=== PATIENT | male | born 1975 | race African-American/Black ===

== ENCOUNTER 2019-09-01 17:58 | Emergency (ER) | payer OTHER ==
[~2019-09-01] VITALS: Ht 177.8 cm; Wt 100.0 kg
[~2019-09-01 17:58] MED LIST: GLIP10TA3; IBUPROFEN; METFORMIN
[2019-09-01] MEDS ORDERED: KETOROLAC 60MG/2ML VIAL IM STA (20:48)
[2019-09-01 21:59] VITALS: BP 130/78
== END 2019-09-01 22:00 | disposition home or self-care (01) ==
LOC: ER 17:58
DX: S46.911A Strain of unspecified muscle, fascia and tendon at shoulder and upper arm level, right arm, initial encounter (principal); X58.XXXA Exposure to other specified factors, initial encounter; M25.511 Pain in right shoulder; Y93.89 Activity, other specified; Y92.89 Other specified places as the place of occurrence of the external cause; Y99.8 Other external cause status; E11.9 Type 2 diabetes mellitus without complications
CPT/HCPCS: 73030; 96372; 99283; J1885